=== PATIENT | male | born 1985 | race Caucasian/White ===

== ENCOUNTER 2017-11-27 13:10 | Outpatient (CLI) | payer SELFPAY | END 2017-11-27 14:52 | disposition home or self-care (01) | PROVIDERS: PCP Nurse Practitioner Family; Visit Provider Nurse Practitioner Family | DX: Z02.4 Encounter for examination for driving license (principal) ==

== ENCOUNTER → 2019-07-31 08:59 | Outpatient (CLI) | payer OTHER, SELFPAY ==
--- NOTE | 2019-07-31 09:02 | US_ITS ---
PROCEDURE: US ABDOMEN LIMITED CLINICAL INDICATION: RUQ PAIN Right upper quadrant pain after eating with nausea COMPARISON: No exams were available for comparison FINDINGS: PANCREAS: Unremarkable. No obvious mass or abnormal fluid collection. No ductal dilatation LIVER: No focal liver lesions demonstrated. Homogeneous echogenicity. No intrahepatic biliary ductal dilatation evident. There is appropriate direction of blood flow within a non dilated portal vein. Increased echogenicity of the liver consistent with fatty liver with poor through transmission of sound RIGHT KIDNEY: Unremarkable. Normal size and echogenicity. No hydronephrosis GALLBLADDER: No gallstones, gallbladder wall thickening, pericholecystic fluid, or biliary dilatation. IMPRESSION: Fatty liver. Otherwise negative right upper quadrant ultrasound Dictated by: Alfredito Nunez MD 07/31/2019 18:17 Electronically signed by Alfredito Nunez MD in [place] 07/31/2019 18:17
== END ==
PROVIDERS: PCP Family Medicine; Visit Provider Family Medicine
DX: R10.11 Right upper quadrant pain (principal)
CPT/HCPCS: 76705

== ENCOUNTER → 2019-08-04 10:04 | Outpatient (CLI) | payer OTHER, SELFPAY ==
--- NOTE | 2019-08-04 10:06 | NM_ITS ---
PROCEDURE: NM HEPATOBILIARY W PHARM CLINICAL INDICATION: RUQ PAIN Right upper quadrant pain COMPARISON: US ABDOMEN LIMITED from 07/31/2019 TECHNIQUE: DOSE: 8.73 mCi technetium Choletec. 3.1 mcg of CCK FINDINGS: Homogeneous activity is present within the hepatic parenchyma. Activity is present in the gallbladder by 10 minutes. Activity is present in the small bowel by 15 minutes. The gallbladder ejection fraction is calculated to be 87 percent. CCK-The patient did not report pain or other symptoms during CCK infusion. IMPRESSION: Unremarkable hepatobiliary scan with normal gallbladder ejection fraction Dictated by: Alfredito Nunez MD 08/04/2019 15:42 Electronically signed by Alfredito Nunez MD in [place] 08/04/2019 15:42
--- NOTE | 2019-08-04 10:28 | HMH.ITSHM ---
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 [facility]
== END ==
PROVIDERS: PCP Family Medicine; Visit Provider Family Medicine
DX: R10.11 Right upper quadrant pain (principal)
CPT/HCPCS: 78227; A9537; J2805

== ENCOUNTER 2021-06-18 12:37 | Emergency (ER) | payer OTHER, SELFPAY ==
[2021-06-18 14:15] VITALS: BP 133/95; PULSE 88; RESP 19; TEMP 36.7; O2SAT 98; BMI 44.7
[2021-06-18 14:40] VITALS: BP 133/95; PULSE 88; RESP 19; TEMP 36.7; O2SAT 98
--- NOTE | 2021-06-18 14:55 | HMH.EDUTC ---
[facility] [place] Disposition Clinical Impression: Encounter for laboratory testing for COVID-19 virus Disposition: Home, Self-Care Condition on Discharge: Good Instructions: DI for COVID-19 (Suspected or Confirmed ), Coronavirus Disease 2019, Preventing the Spread of Coronavirus Discharge Instructions Additional Instructions: *Monitor Temp, Over the counter Motrin or Tylenol as directed/as needed Tylenol every 4 hours and Motrin every 6 hours (as long as your family doctor has told you that you can take it) for fever or pain. and straight to ER if unable to lower temp less than 101.0 after medication given *Warm salt water gargles may help to soothe the throat *Throat Lozenges *Warm fluids like tea with honey may help to soothe the throat *Sleep elevated *Humidifier/Vaporizer * Follow up IMMEDIATELY for new or worsening symptoms or no Noticeable improvement over the next 48-72 hours. 911 for difficulty breathing or swallowing You were tested for today for COVID19 your test result should be back in the next 24-48 hours, You was given written instructions for [facility] portal you can see your results there when they come back you may check it often to see if they are done You was given a handout with instructions for Self Quarantine and Self isolation for while you wait on test results and what to do if they are positive If you are positive the Health Dept will be contacting you also Make sure to take your Vitamins Vit. C Vit D and Zinc if you can take them Referrals: Gonzalo Parker MD [Primary Care Provider] - As needed Forms: Work/School Release Medical Decision Making - Emmanuel Inquiry Pt receiving controlled substance: No Emmanuel was queried for this patient: No Vital Signs: 06/18/21 14:15 06/18/21 14:40 Temperature 98.0 F 98.0 F Temperature Source Oral Pulse Rate 88 Pulse Rate [Right Brachial] 88 Respiratory Rate 19 19 Blood Pressure 133/95 H Blood Pressure [Right Arm] 133/95 H Blood Pressure Mean [Right Arm] 107 Blood Pressure Source [Right Arm] Automatic Cuff Blood Pressure Position [Right Arm] Sitting 02 Sat by Pulse Oximetry 98 Oxygen Delivery Method Room Air [facility] [place] HPI - General Stated complaint: covid test Time Seen by Provider: 06/18/21 14:10 Mode of Arrival: Ambulatory Source of Information: Patient Limitations: No Limitations Description of Symptoms (Recalled from Triage Doc. by RN): REQUESTING COVID TEST. C/O FEVER AND COUGH HEENT Symptoms (Recalled from RN notes): No Resp Symptoms (Recalled from RN notes): No Skin Symptoms (Recalled from RN notes): No MS Symptoms (Recalled from RN notes): No Functional Status (Recalled from RN notes): WNL - History of Present Illness Provider Complaint: Patient states that yesterday he had cough and slight fever States that today he is feeling fine but wanted to get tested for COVID before he went back to [employer] to work on Sunday - Related Data Home Medications Medication Instructions Recorded Confirmed No Known Home Medications 11/26/19 11/26/19 Allergies Allergy/AdvReac Type Severity Reaction Status Date / Time No Known Allergies Allergy Verified 11/26/19 13:03 - Worker's Comp Is this a Worker's Comp case?: No [facility] History - Hepatitis A Screen Drug use history?: No High risk sexual behaviors?: No History of sexually transmitted infection?: No Currently employed?: No Childcare worker?: No Do you have indoor plumbing?: Yes Do you have electricity?: Yes Attestation statement:: This patient has been screened for Hepatitis A risk factors. I have reviewed the patient's past medical history: Yes Comment: sleep apnea Laterality Cases: Bilateral: Carpal Tunnel Release Other Surgeries: Yes: No Previous Surgery - Social History Smoking Status: Current every day smoker Tobacco Type: smokeless tobacco Alcohol Intake: current Alcohol Intake Frequency:: holidays/special occasions only Substance Use Type: denies use Occup
== END 2021-06-18 14:44 | disposition home or self-care (01) ==
PROVIDERS: Emergency Provider Nurse Practitioner; PCP Family Medicine
DX: R51.9 Headache, unspecified (principal); R05 Cough; Z20.822 Contact with and (suspected) exposure to COVID-19
CPT/HCPCS: 99202; G0463; U0003

== ENCOUNTER → 2021-08-15 08:50 | Outpatient (CLI) | payer OTHER, SELFPAY ==
--- NOTE | 2021-08-15 09:17 | US_ITS ---
PROCEDURE: US THYROID CLINICAL INDICATION: THYROMEGALY COMPARISON: No exams were available for comparison FINDINGS: The right lobe measures 4.7 x 1.7 x 2.1 cm. The left lobe measures 4.8 x 1.72.1 cm. The isthmus is thickened at 7 mm. There is homogeneous echogenicity of the thyroid gland on both sides. No nodule is in the right or left lobe. There are 2 small nodules in the central and left aspect of the isthmus measuring 9 x 3 mm and 5 x 5 mm. These are hypoechoic well-circumscribed wider than tall without calcification. IMPRESSION: Mildly enlarged thyroid gland. Two small isthmus nodules. These are not well demonstrated. The the 5 mm nodule nodule may be cystic. Suggest 6 month follow-up. Dictated by: Alfredito Nunez MD 08/15/2021 16:43 Alfredito Nunze MD in [place] 08/15/2021 16:43
== END ==
LOC: RAD 08:50
PROVIDERS: PCP Family Medicine; Visit Provider Nurse Practitioner Family
DX: E01.0 Iodine-deficiency related diffuse (endemic) goiter (principal)
CPT/HCPCS: 76536

== ENCOUNTER → 2021-12-01 09:14 | Outpatient (CLI) | payer OTHER, SELFPAY ==
--- NOTE | 2021-12-01 09:22 | XR_ITS ---
FINAL REPORT CLINICAL HISTORY: RT SHOULDER PAIN FINDINGS: RIGHT SHOULDER Two views demonstrate no acute fracture or dislocation. Mild degenerative changes are present. The visualized bony structures are well aligned. No soft tissue abnormality is seen. IMPRESSION: No acute process. Reviewed, Interpreted and Dictated by Sami Oro III, MD Transcribed by Caitlin Reaves Authenticated by Sami Oro III, MD on 12/01/2021 10:10:38 AM [facility]
== END ==
LOC: RAD 09:15
PROVIDERS: PCP Family Medicine; Visit Provider Nurse Practitioner Family
DX: M25.511 Pain in right shoulder (principal)
CPT/HCPCS: 73030

== ENCOUNTER 2022-11-20 09:36 | Emergency (ER) | payer OTHER, SELFPAY ==
[2022-11-20 10:45] VITALS: BP 157/92; PULSE 95; RESP 20; TEMP 37.1; O2SAT 98; BMI 43.4
--- NOTE | 2022-11-20 10:54 | EXP.UTC ---
Discharge Plan Disposition Patient Disposition: Home, Self-Care Condition: Good Prescriptions Prescriptions: New amoxicillin [amoxicillin] 500 mg tablet 500 mg PO TID 10 Days Qty: 30 0RF benzonatate [benzonatate] 100 mg capsule 100 mg PO TIDP PRN (Reason: Cough) Qty: 30 0RF ondansetron 4 mg Tablet,Disintegrating 4 mg PO Q8H PRN (Reason: Nausea) Qty: 12 0RF Referrals Follow up/Referrals: Tera Reynolds MD [Primary Care Provider] - See instructions Activity Restrictions/Add. Instructions Additional Instructions/Restrictions: Drink plenty of fluids. Take tylenol or ibuprofen for pain or fever. Take the medications as directed. Follow up with your regular doctor. GO TO THE ER FOR ANY WORSENING SYMPTOMS Throw your tooth brush away and get a new one. Clinical Impressions Clinical Impression: Strep throat Stand Alone Forms Stand Alone Forms: Work/School Release Instructions Patient Instructions: Strep Throat, DI for Strep Throat Discharge ED Provider: Leon Monroe [facility] General Stated complaint: fever sore throat runny nose Time Seen by Provider: 11/20/22 10:54 History of Present Illness Provider Complaint: He states that for the past 2 days he has had a worsening sore throat. Related Data Previous Rx's Medication Instructions Recorded amoxicillin 500 mg tablet 500 mg PO TID 10 days #30 tabs 11/20/22 benzonatate 100 mg capsule 100 mg PO TIDP PRN Cough #30 caps 11/20/22 ondansetron 4 mg disintegrating 4 mg PO Q8H PRN Nausea #12 tabs 11/20/22 tablet Allergies Allergy/AdvReac Type Severity Reaction Status Date / Time No Known Allergies Allergy Verified 11/20/22 11:[address] [facility] Disclaimer: The information contained in this section may have been updated after the patient was seen, as this information can be updated by other users. Social History Smoking Status: Current every day smoker tobacco type: smokeless tobacco alcohol intake: current substance use type: denies use current occupational status: employed Travel in the last 8 weeks: None household members: family housing: house ROS Obtained: Yes All systems reviewed & no additional complaints except as documented Constitutional Constitutional: Reports chills and Reports fever(s) Eyes Eyes: Denies eye discharge ENT Ears, Nose, Mouth, and Throat: Reports as per HPI Cardiovascular Cardiovascular: Denies chest pain Respiratory Respiratory: Denies chest congestion and Reports cough Gastrointestinal Gastrointestingal: Reports nausea; Denies abdominal pain, constipation, cramping, diarrhea or vomiting Musculoskeletal Musculoskeletal: Denies arthralgias Integumentary/Breasts Skin/Breast: Denies rash Neurologic Neurologic: Denies paresthesias Physical Exam General General appearance: alert and in no apparent distress Head Head exam: atraumatic, normocephalic and normal inspection Eye Eye exam: Present normal appearance, PERRL and EOMI ENT ENT exam: Present mucous membranes moist and normal external ear exam Expanded ENT Exam TM/Canal exam: Bilateral TM: erythema and bulging Nose exam: Absent sinus tenderness Mouth exam: Present normal external inspection; Absent drooling Teeth exam: Present normal inspection Throat exam: Present tonsillar erythema, tonsillomegaly and tonsillar exudate Neck Neck exam: Present normal inspection, full ROM and trachea midline; Absent tenderness, meningismus or lymphadenopathy Chest Chest inspection: Present normal inspection and symmetric chest wall rise; Absent tenderness Respiratory Respiratory exam: Present normal lung sounds bilaterally; Absent respiratory distress, wheezes or stridor Cardiovascular Cardiovascular exam: Present regular rate and normal rhythm; Absent systolic murmur or diastolic murmur Abdominal Exam Abdominal exam: Present soft and normal bowel sounds; Absent distention, tenderness, gu
[2022-11-20 10:59] LABS: UTC Strep Screen (Rapid) Positive (Negative)
[2022-11-20 11:24] VITALS: BP 157/92; PULSE 95; RESP 20; TEMP 37.1; O2SAT 98
== END 2022-11-20 11:23 | disposition home or self-care (01) ==
PROVIDERS: Emergency Provider Nurse Practitioner Family; PCP Family Medicine
DX: J02.0 Streptococcal pharyngitis (principal)
CPT/HCPCS: 87880; 99212; 99213; G0463

== ENCOUNTER 2023-01-19 15:46 | Emergency (ER) | payer OTHER, SELFPAY ==
[2023-01-19 15:50] VITALS: BP 143/87; PULSE 90; RESP 21; TEMP 36.8; O2SAT 100; BMI 46.0
[2023-01-19 16:49] VITALS: BP 143/87; PULSE 90; RESP 21; TEMP 36.8; O2SAT 100
--- NOTE | 2023-01-19 16:56 | EXP.UTC ---
Discharge Plan Disposition Patient Disposition: Home, Self-Care Condition: Good Prescriptions Prescriptions: New cefdinir 300 mg capsule 300 mg PO BID 10 Days Qty: 20 0RF Discontinued amoxicillin [amoxicillin] 500 mg tablet 500 mg PO TID 10 Days Qty: 30 0RF benzonatate [benzonatate] 100 mg capsule 100 mg PO TIDP PRN (Reason: Cough) Qty: 30 0RF ondansetron 4 mg Tablet,Disintegrating 4 mg PO Q8H PRN (Reason: Nausea) Qty: 12 0RF Referrals Follow up/Referrals: Iqra Oneill APRN [Primary Care Provider] - See instructions Clinical Impressions Clinical Impression: Acute suppur right otitis media w/o spontan rupture tympanic membrane Instructions Patient Instructions: DI for Middle Ear Infection-Adult Discharge ED Provider: Swathi Mueller [facility] General Stated complaint: ears Mode of Arrival: Ambulatory Source of Information: Patient Limitations: No Limitations Time Seen by Provider: 01/19/23 16:56 Description of Symptoms (Recalled from Triage Doc. by RN): PATIENT C/O SINUS CONGESTION AND EAR PAIN THAT STARTED YESTERDAY HEENT Symptoms (Recalled from RN notes): Yes Resp Symptoms (Recalled from RN notes): No Skin Symptoms (Recalled from RN notes): No MS Symptoms (Recalled from RN notes): No Functional Status (Recalled from RN notes): WNL History of Present Illness Provider Complaint: Pt states that yesterday he started having some sinus drainage and right ear pain. He relates that he uses CPAP and often will get a sinus infection from its use. Related Data Previous Rx's Medication Instructions Recorded cefdinir 300 mg capsule 300 mg PO BID 10 days #20 caps 01/19/23 Allergies Allergy/AdvReac Type Severity Reaction Status Date / Time No Known Allergies Allergy Verified 11/20/22 11:01 Worker's Comp Is this a Worker's Comp case?: No [facility] Disclaimer: The information contained in this section may have been updated after the patient was seen, as this information can be updated by other users. Social History Smoking Status: Current every day smoker tobacco type: smokeless tobacco alcohol intake: current substance use type: denies use current occupational status: employed Travel in the last 8 weeks: None household members: family housing: house ROS Obtained: Yes All systems reviewed & no additional complaints except as documented Constitutional Constitutional: Reports system reviewed and no additional complaints, except as documented Eyes Eyes: Reports system reviewed and no additional complaints, except as documented ENT Ears, Nose, Mouth, and Throat: Reports otalgia, Reports nasal discharge and Reports sinus pressure Cardiovascular Cardiovascular: Reports system reviewed and no additional complaints, except as documented Respiratory Respiratory: Reports system reviewed and no additional complaints, except as documented Gastrointestinal Gastrointestingal: Reports system reviewed and no additional complaints, except as documented Genitourinary Male Genitourinary: Reports system reviewed and no additional complaints, except as documented Musculoskeletal Musculoskeletal: Reports system reviewed and no additional complaints, except as documented Integumentary/Breasts Skin/Breast: Reports system reviewed and no additional complaints, except as documented Neurologic Neurologic: Reports system reviewed and no additional complaints, except as documented Endocrine Endocrine: Reports system reviewed and no additional complaints, except as documented Hematologic/Lymphatic Henatologic/Lymphatic: Reports system reviewed and no additional complaints, except as documented Allergic/Immunologic Allergic/Immunologic: Reports system reviewed and no additional complaints, except as documented Physical Exam General General appearance: alert and in no apparent distress Head Head exam: atraumatic and normocephalic Eye Eye
== END 2023-01-19 17:11 | disposition home or self-care (01) ==
PROVIDERS: Emergency Provider Nurse Practitioner Family; PCP Nurse Practitioner Family
DX: H66.001 Acute suppurative otitis media without spontaneous rupture of ear drum, right ear (principal); F17.290 Nicotine dependence, other tobacco product, uncomplicated
CPT/HCPCS: 99212; 99214; G0463

== ENCOUNTER 2023-09-09 11:52 | Emergency (ER) | payer BC, SELFPAY ==
[2023-09-09 13:30] VITALS: BP 117/80; PULSE 86; RESP 20; TEMP 37; O2SAT 96; BMI 50.3
--- NOTE | 2023-09-09 13:44 | EXP.UTC ---
Discharge Plan Disposition Patient Disposition: Home, Self-Care Condition: Good Prescriptions Prescriptions: New prednisone [prednisone] 20 mg tablet 20 mg PO BID 5 Days Qty: 10 0RF [id number] [Bromfed DM] 2-30-10 mg/5 mL Syrup 10 ml PO Q4H PRN (Reason: Cough) Qty: 240 0RF cefdinir 300 mg capsule 300 mg PO BID Qty: 20 0RF albuterol sulfate [Proventil HFA] 90 mcg/actuation HFA aerosol inhaler 1 - 2 inh inhalation Q6H PRN (Reason: shortness of breath or wheezing) Qty: 8.5 0RF guaifenesin [Mucinex] 600 mg tablet extended release 12hr 1,200 mg PO BID PRN (Reason: cough/congestion) Qty: 20 0RF No Action cefdinir 300 mg capsule 300 mg PO BID 10 Days Qty: 20 0RF Referrals Follow up/Referrals: Tera Reynolds MD [Primary Care Provider] - See instructions Activity Restrictions/Add. Instructions Additional Instructions/Restrictions: Start antibiotic today. Be sure to complete entire prescription even if feeling better Monitor temp. Tylenol every 4 hours as needed and / or ibuprofen every 6 hours as needed ( As long as your primary care physician has told you that it ok to take both. For fever/aches/pains ER if no less than 101 despite Tylenol or Motrin Humidifier/vaporizer or hot steamy shower Inhaler every 4-6 hours as needed like we discussed. If unsure how to use it, ask pharmacist to demonstrate how. Should help open airways and improve cough, wheezing, and shortness of breath Mucinex during the day for your cough and cough suppressant only at night. Be sure to drink lots of water. *Bromfed may cause drowsiness. Know how it effects you (your child) before driving, caring for small child, or sending your child to school. Not other antihistamines/allergy medications while taking bromfed *Start steroid today. Helps with inflammation therefore, cough and wheezing. Follow directions on the package. Reviewed side effects. Patient reports taking them before. Follow up IMMEDIATELY for new or worsening of symptoms OR no noticeable improvement over the next 48-72 hours. 911 immediately for any life threatening symptoms such as chest pain or difficulty breathing Clinical Impressions Clinical Impression: Bronchitis Sinusitis Qualifiers: Sinusitis location: unspecified location Chronicity: unspecified Qualified Code(s): J32.9 - Chronic sinusitis, unspecified Instructions Patient Instructions: Sinusitis, DI for Sinusitis, Acute Bronchitis Discharge ED Provider: Breanne Walton [facility] General Stated complaint: cough, wheezing in chest Mode of Arrival: Ambulatory Source of Information: Patient Limitations: No Limitations Time Seen by Provider: 09/09/23 13:44 Description of Symptoms (Recalled from Triage Doc. by RN): PATIENT C/O CHEST CONGESTION, COUGH AND WHEEZING X 4 DAYS HEENT Symptoms (Recalled from RN notes): No Resp Symptoms (Recalled from RN notes): Yes Skin Symptoms (Recalled from RN notes): No MS Symptoms (Recalled from RN notes): No Functional Status (Recalled from RN notes): WNL History of Present Illness Provider Complaint: Patient states that he feels like he has bronchitis States that for the last 3-4 days he has been having chest congestion, cough, wheezing on and off and drainage in the back of his throat States that he feels like it is getting worse so he came in to get checked out Related Data Previous Rx's Medication Instructions Recorded cefdinir 300 mg capsule 300 mg PO BID 10 days #20 caps 01/19/23 albuterol sulfate 90 mcg/actuation 1 - 2 inh inhalation Q6H PRN 09/09/23 aerosol inhaler (Proventil HFA) shortness of breath or wheezing #8.5 grams [id number] 10 ml PO Q4H PRN Cough #240 mL 09/09/23 2 mg-30 mg-10 mg/5 mL oral syrup (Bromfed DM) cefdinir 300 mg capsule 300 mg PO BID #20 caps 09/09/23 guaifenesin 600 mg tablet, 1,200 mg PO BID PRN 09/09/23
[2023-09-09 13:55] VITALS: BP 117/80; PULSE 86; RESP 20; TEMP 37; O2SAT 96
== END 2023-09-09 13:57 | disposition home or self-care (01) ==
PROVIDERS: Emergency Provider Nurse Practitioner; PCP Family Medicine
DX: J20.9 Acute bronchitis, unspecified (principal); J01.90 Acute sinusitis, unspecified; R06.2 Wheezing; R05.9 Cough, unspecified; R09.89 Other specified symptoms and signs involving the circulatory and respiratory systems; R09.81 Nasal congestion; R09.82 Postnasal drip; F17.290 Nicotine dependence, other tobacco product, uncomplicated
CPT/HCPCS: 99212; 99214; G0463

== ENCOUNTER 2023-11-18 11:04 | Emergency (ER) | payer BC, SELFPAY ==
[2023-11-18 11:05] VITALS: BP 132/82; PULSE 90; RESP 16; TEMP 36.8; O2SAT 99; BMI 47.5
--- NOTE | 2023-11-18 11:37 | ED_ITS ---
Discharge Plan Disposition Patient Disposition: Home, Self-Care Condition: Good Prescriptions Prescriptions: New amoxicillin-pot clavulanate 875-125 mg tablet 1 tab PO BID Qty: 20 0RF No Action cefdinir 300 mg capsule 300 mg PO BID 10 Days Qty: 20 0RF prednisone [prednisone] 20 mg tablet 20 mg PO BID 5 Days Qty: 10 0RF [id number]-[id number]-[id number] [Bromfed DM] 2-30-10 mg/5 mL Syrup 10 ml PO Q4H PRN (Reason: Cough) Qty: 240 0RF cefdinir 300 mg capsule 300 mg PO BID Qty: 20 0RF albuterol sulfate [Proventil HFA] 90 mcg/actuation HFA aerosol inhaler 1 - 2 inh inhalation Q6H PRN (Reason: shortness of breath or wheezing) Qty: 8.5 0RF guaifenesin [Mucinex] 600 mg tablet extended release 12hr 1,200 mg PO BID PRN (Reason: cough/congestion) Qty: 20 0RF Referrals Follow up/Referrals: Tera Reynolds MD [Primary Care Provider] - See instructions Activity Restrictions/Add. Instructions Additional Instructions/Restrictions: You were evaluated in the emergency department today. Please machine pecan picker the prescription for antibiotics and take the full course as prescribed. Follow-up with your dentist over the next 2 days for reassessment. Return to the emergency department for new or worsening symptoms. Take Tylenol and ibuprofen at home as needed for pain. Clinical Impressions Clinical Impression: Pain, dental Instructions Patient Instructions: DI for Dental Pain Discharge ED Provider: Shira Denise General Adult HPI General Chief complaint: Dental/Oral Stated complaint: had teeth removed swollen and shooting pain Time Seen by Provider: 11/18/23 11:15 Mode of Arrival: Ambulatory Source of Information: Patient Limitations: No Limitations Description of Symptoms (Recalled from ER Triage Doc. by RN): Pt c/o left jaw pain after bitting into a chip lastnight. Pt reports having a tooth on the right side extracted 3 1/2 weeks ago. History of Present Illness HPI narrative: This patient is a 38-year-old male with history of port infection status post dental extractions bilaterally presenting to the emergency department for evaluation with concern for right-sided dental pain. According to the patient, he bit into a chip yesterday at a [employer] restaurant and started having tooth on the right side where he had had a tooth extracted. The tooth was extracted approximate 3.5 weeks ago. He was on amoxicillin afterward, which she has subsequently completed the course of. He notes that now he is having pain and swelling in his right lower jaw. The pain radiates up into his ear. No fevers or systemic symptoms noted. Related Data Previous Rx's Medication Instructions Recorded cefdinir 300 mg capsule 300 mg PO BID 10 days #20 caps 01/19/23 albuterol sulfate 90 mcg/actuation 1 - 2 inh inhalation Q6H PRN 09/09/23 aerosol inhaler (Proventil HFA) shortness of breath or wheezing #8.5 grams mgtuiwbfbkfshyh-ctdazcmnhjdwgld-LA 10 ml PO Q4H PRN Cough #240 mL 09/09/23 2 mg-30 mg-10 mg/5 mL oral syrup (Bromfed DM) cefdinir 300 mg capsule 300 mg PO BID #20 caps 09/09/23 guaifenesin 600 mg tablet, 1,200 mg PO BID PRN 09/09/23 extended release 12 hr (Mucinex) cough/congestion #20 tabs prednisone 20 mg tablet 20 mg PO BID 5 days #10 tabs 09/09/23 amoxicillin 875 mg-potassium 1 tab PO BID #20 tabs 11/18/23 clavulanate 125 mg tablet Allergies Allergy/AdvReac Type Severity Reaction Status Date / Time No Known Allergies Allergy Verified 11/20/22 11:01 [facility] Disclaimer: The information contained in this section may have been updated after the patient was seen, as this information can be updated by other users. Medical History No significant past medical history Social History Smoking Status: Never smoker alcohol intake: current substance use type: denies use current occupational status: employed Travel in the last 8 weeks: None household members: family housing: house ROS Obtained: Yes All systems reviewed & no additional complaints except as documented Physical Exam General General appearance: alert and in no apparent distress Head Head exam: atraumatic and normocephalic Eye Eye exam: Present normal appearance, PERRL and EOMI ENT ENT exam: Present normal oropharynx, mucous membranes moist and normal external ear exam Expanded ENT Exam Teeth numbered Image: 1. Other (bony fragment protruding from gums at site of prior extraction with tenderness and associated edema) Neck Neck exam: Present normal inspection, full ROM and trachea midline; Absent tenderness Chest Chest inspection: Present normal inspection and symmetric chest wall rise; Absent tenderness Respiratory Respiratory exam: Present normal lung sounds bilaterally; Absent respiratory distress, wheezes, stridor or accessory muscle use Cardiovascular Cardiovascular exam: Present regular rate and normal rhythm Abdominal Exam Abdominal exam: Present soft; Absent distention, tenderness or guarding Extremities Exam Extremities exam: Present normal inspection, full ROM and normal capillary refill; Absent tenderness or edema Back Exam Back exam: Present normal inspection and full ROM; Absent tenderness Neurological Exam Neurological exam: Present alert, oriented X3, CN II-XII intact and normal gait; Absent motor sensory deficit Psychiatric Psychiatric exam: Present normal affect and normal mood Skin Skin exam: Present warm and dry Medical Decision Making Medical Records Medical records reviewed: Yes I reviewed the patient's medical records. Emmanuel Inquiry Pt receiving controlled substance: No Vital Signs: 11/18/23 11:05 Temperature 98.2 F Temperature Source Oral Pulse Rate [Right Radial] 90 Respiratory Rate 16 Blood Pressure [Right Arm] 132/82 Blood Pressure Mean [Right Arm] 98 Blood Pressure Source [Right Arm] Automatic Cuff Blood Pressure Position [Right Arm] Sitting 02 Sat by Pulse Oximetry 99 Oxygen Delivery Method Room Air Lab Data Lab results reviewed: Yes I reviewed the patient's lab results. Medical Decision Narrative: In summary, this patient is a 38-year-old male presenting to the Emergency Department for evaluation of right-sided dental pain. Differential diagnoses considered include but are not limited to abscess, foreign body, cellulitis, dental fracture. Ruling out the most morbid conditions drove assessment. On exam, the patient is well-appearing. He has tenderness and swelling of the right lower jaw at the site of a retained bony fragment from prior extraction. The last 1 without significant swelling of his face. No drooling or trismus. No systemic symptoms, and vitals are normal. Given this, do not feel that labs or imaging are indicated. I feel that he is appropriate for discharge with a prescription for Augmentin to treat potential infection and instructions for close follow-up with his dentist for further evaluation and management. He was given strict return precautions and was discharged in stable condition after all questions were answered. Critical Care Critical Care Time Critical Care Time: No
[2023-11-18 11:48] VITALS: BP 132/82; PULSE 90; RESP 16; TEMP 36.8; O2SAT 99
== END 2023-11-18 11:49 | disposition home or self-care (01) ==
PROVIDERS: Emergency Provider Emergency Medicine; PCP Family Medicine
DX: R68.84 Jaw pain (principal); K08.89 Other specified disorders of teeth and supporting structures
CPT/HCPCS: 99283

== ENCOUNTER 2024-12-24 16:12 | Emergency (ER) | payer BC, SELFPAY ==
[2024-12-24 16:33] LABS: Microscopic, Urine URINE MICROSCOPIC (MICROSCOPIC)
--- NOTE | 2024-12-24 16:33 | ED_ITS ---
<Statement entered by Shira Denise DO - 12/24/24 22:44> I was consulted by the NARCISA, and we discussed the complexity of the problems being addressed. I approved the treatment and management plan for this patient's care in the emergency department, thus performing a substantive portion of the medical decision making. Shira Denise DO Discharge Plan Disposition Patient Disposition: Home, Self-Care Condition: Good Chief Complaint: Altered Mental Status Prescriptions Prescriptions: No Action Mounjaro 7.5 mg/0.5 mL pen injector 7.5 mg SQ WEEKLY Patient Comments: INJECT 1 SYRINGE SUBCUTANEOUSLY ONCE A WEEK Referrals Follow up/Referrals: Tera Reynolds MD [Primary Care Provider] - See instructions Activity Restrictions/Add. Instructions Additional Instructions/Restrictions: Return to the emergency department with any worsening signs or symptoms, follow- up with family doctor. Continue take all medication as prescribed. Clinical Impressions Clinical Impression: Intermittent confusion, H/O urinary frequency Instructions Patient Instructions: DI for Altered Mental Status Print Language Print Language: Albanian Discharge ED Provider: Shira Denise General Adult HPI <AUDRA Brown - Last Filed: 12/24/24 18:41> General Chief complaint: Altered Mental Status Stated complaint: frequent urination, confused Time Seen by Provider: 12/24/24 16:31 Mode of Arrival: Ambulatory Source of Information: Patient Limitations: No Limitations History of Present Illness HPI narrative: 39-year-old male presents to the emergency department for a chief complaint of confusion , patient states this started this morning. 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 Denies any fever chills chest pain shortness of breath nausea vomiting constipation abdominal pain, melena, no hematochezia, no hematemesis, admit to fatigue, he admits to recent life stressors, states he got a good nights rest last night , dates he has been eating and drinking appropriately, patient has no other real relevant past medical history, takes GLP-1 agonist at home as needed for weight loss. Patient is a non-smoker, does use smokeless tobacco, denies any other alcohol or drug use, initial triage vitals are notable for tachycardia otherwise grossly unremarkable. Patient on my assessment at the bedside is GCS of 15, moves extremities to command, alert oriented to person place and time. NIH of 0. Onset (ago): hour(s) Related Data Home Medications ?Medication ?Instructions ?Recorded ?Confirmed tirzepatide 7.5 mg/0.5 mL 7.5 mg SQ WEEKLY 12/24/24 12/24/24 subcutaneous pen injector (Mounjaro) Allergies Allergy/AdvReac Type Severity Reaction Status Date / Time No Known Allergies Allergy Verified 12/24/24 16:52 PFS <AUDRA Brown - Last Filed: 12/24/24 18:41> PFS Disclaimer: The information contained in this section may have been updated after the patient was seen, as this information can be updated by other users. Medical History No significant past medical history Family History (Updated 12/24/24 @ 16:51 by Alice Phelan, RN) Other No significant family history Social History Smoking Status: Unknown if ever smoked alcohol intake: current alcohol intake frequency: holidays/special occasions only substance use type: denies use current occupational status: employed Travel in the last 8 weeks: None household members: family housing: house Have you lived/traveled outside [place] in past 30 days?: No Contact w/someone who lives/traveled outside US past 30 days?: No Exposure to someone with infectious disease in past 14 days?: No Do you have a fever (greater than 100.4 F or 38 C)?: No Have you tested positive for COVID-19: No Exposed to someone with COVID-19 in past 14 days?: No Do you have a sore throat?: No Do you have a cough?: No Do you have any weakness?: No Do you have any diarrhea?: No Are you experiencing any unusual bleeding?: No Do you have any muscle aches/pain?: No Do you have any abdominal pain?: No Are you experiencing loss of taste or smell?: No Other Medical History Have you received the Flu Vaccine for this season: No Have you received the Pneumonia Vaccine: No <AUDRA Brown - Last Filed: 12/24/24 18:41> ROS Obtained: Yes All systems reviewed & no additional complaints except as documented Physical Exam <AUDRA Brown - Last Filed: 12/24/24 18:41> General General appearance: alert, in no apparent distress and anxious Head Head exam: atraumatic and normocephalic Eye Eye exam: Present PERRL and EOMI ENT ENT exam: Present mucous membranes moist Neck Neck exam: Present normal inspection Chest Chest inspection: Present normal inspection and symmetric chest wall rise Respiratory Respiratory exam: Present normal lung sounds bilaterally; Absent respiratory distress, wheezes or stridor Cardiovascular Cardiovascular exam: Present regular rate and tachycardia Abdominal Exam Abdominal exam: Present soft and normal bowel sounds; Absent tenderness, guarding, rebound or rigidity Extremities Exam Extremities exam: Present normal inspection Neurological Exam Neurological exam: Present alert, oriented X3 and other (Patient is GCS of 15, 5 out of 5 strength in bilateral lower and upper extremities, moves extremities to command, follows commands, oriented to person place and time.) Psychiatric Psychiatric exam: Present normal affect Skin Skin exam: Present warm and dry Medical Decision Making <AUDRA Brown - Last Filed: 12/24/24 18:41> Medical Records Medical records reviewed: Yes I reviewed the patient's medical records. Screening: Per USPSTF and CDC recommendations, given the prevalence of disease in our region, it is our hospital?s policy to screen for HIV and viral Hepatitis for all patients aged 18 and over and those with ongoing risk factors. Emmanuel Inquiry Pt receiving controlled substance: No Emmanuel was queried for this patient: No Vital Signs: 12/24/24 16:35 12/24/24 17:05 12/24/24 17:39 Temperature 98.1 F Temperature Source Oral Pulse Rate 96 H 91 H Pulse Rate [Right] 104 H Respiratory Rate 18 Blood Pressure 116/67 Blood Pressure [Right Arm] 157/98 H Blood Pressure Mean 83 Blood Pressure Mean [Right Arm] 117 Blood Pressure Source [Right Arm] Automatic Cuff Blood Pressure Position [Right Arm] Sitting 02 Sat by Pulse Oximetry 97 94 L 97 Oxygen Delivery Method Room Air 12/24/24 18:01 Temperature Temperature Source Pulse Rate 94 H Pulse Rate [Right] Respiratory Rate Blood Pressure 119/65 Blood Pressure [Right Arm] Blood Pressure Mean 74 Blood Pressure Mean [Right Arm] Blood Pressure Source [Right Arm] Blood Pressure Position [Right Arm] 02 Sat by Pulse Oximetry 96 Oxygen Delivery Method Lab Data Lab Results 12/24/24 16:20: WBC 10.8, RBC 5.44, Hgb 16.0, Hct 46.8, MCV 86.0, MCH 29.4, MCHC 34.2, RDW 13.8, Plt Count 288, MPV 8.9, Neut % (Auto) 64.1, Lymph % (Auto) 24.3, [place] % (Auto) 8.5, Eos % (Auto) 2.1, Baso % (Auto) 0.6, Neut # (Auto) 6.9, Lymph # (Auto) 2.6, [place] # (Auto) 0.9, Eos # (Auto) 0.2, Baso # (Auto) 0.1, Sodium 137, Potassium 4.0, Chloride 99, Carbon Dioxide 31 H, Anion Gap 11.0, BUN 10, Creatinine 0.90, Estimated Creat Clear 212, Estimated GFR 94, Est GFR ( Amer) 114, Glucose 101 H, Calcium 9.7, Magnesium 1.8, Total Bilirubin 0.5, AST 37, ALT 39, Alkaline Phosphatase 63, Troponin I < 0.01, NT-Pro-B Natriuret Pep < 20.0, Total Protein 8.1, Albumin 4.8, Globulin 3.3 H, Albumin/Globulin Ratio 1.5, Lipase 287, Urine Color Yellow, Urine Appearance Clear, Urine pH 7.0, Ur Specific [place] 1.020, Urine Protein Negative, Urine Glucose (UA) Negative, Urine Ketones Negative, Urine Blood Negative, Urine Nitrate Negative, Urine Bilirubin Negative, Urine Urobilinogen 0.2, Ur Leukocyte Esterase Negative, Urine RBC Occasional, Urine WBC Occasional, Ur Squamous Epith Cells Occasional, Urine Bacteria 1+, Urine Opiates Screen Negative, Urine Methadone Screen Negative, Ur Barbituates Screen Negative, Ur Phencyclidine Scrn Negative, Ur Amphetamines Screen Negative, U Benzodiazepines Scrn Negative, Urine Cocaine Screen Negative, U Marijuana (THC) Screen Negative 12/24/24 17:11: SARS-CoV-2 (PCR) Not detected, Influenza A Untype (PCR) Not detected, Influenza Type B (PCR) Not detected 12/24/24 16:20 12/24/24 16:20 Orders (Tests/Meds): ORDERS Category Date Time Status CT head/brain wo con Stat Cat Scan 12/24/24 16:43 Completed XR chest portable Stat Exams 12/24/24 16:43 Completed Complete Blood Count Auto Diff Stat Lab 12/24/24 16:20 Completed Comprehensive Metabolic Panel Stat Lab 12/24/24 16:20 Completed Drug Screen,Urine Stat Lab 12/24/24 16:20 Completed Lipase Stat Lab 12/24/24 16:20 Completed Magnesium Stat Lab 12/24/24 16:20 Completed NT Pro Brain Natriuretic Pep. Stat Lab 12/24/24 16:20 Completed Rapid PCR Covid and Flu A/B Stat Lab 12/24/24 17:11 Completed Troponin I Q3H Lab 12/24/24 19:45 Ordered Troponin I Q3H Lab 12/24/24 22:45 Ordered Troponin I Stat Lab 12/24/24 16:20 Completed UA [Urinalysis and Microscopic] Stat Lab 12/24/24 16:20 Completed Medical Decision Narrative: 39-year-old male presents to the emergency department with altered mental status and frequent urination, differential diagnose include but not limited to, cardiac arrhythmia, electrolyte disturbance, normal pressure hydrocephalus, acute UTI, uremic encephalopathy, toxic cephalopathy, metabolic encephalopathy, encephalopathy, intracranial mass, intracranial hemorrhage. Discussed patient case with leif Denise Obtain basic laboratory studies, lipase level, magnesium level proBNP, urinalysis and UDS, rapid PCR for COVID and flu, troponin, EKG, CT head without contrast, chest x-ray Urinalysis is grossly unremarkable, negative hematuria, negative ketonuria, negative nitrites, negative leukocyte esterase. CBC grossly unremarkable CMP is notable for minimal carbon dioxide elevation level at 31, grossly unremarkable CMP. Lipase is within normal limits. Urinalysis is negative for leukocyte esterase, occasional RBCs, occasional WBCs, 1+ bacteria, negative nitrites Troponin within normal limits proBNP within normal limits I reviewed the patient's CT head without contrast along the corresponding radiologic report, no evidence for acute transcortical infarct, acute intracranial hemorrhage or mass effect. I reviewed the patient's chest x-ray along the corresponding radiologic report clear lungs. Reviewed the patient's EKG along with the attending physician at 1709, sinus rhythm with 96 bpm, DE interval within normal limits, QT interval within normals there is no STEMI. UDS is negative Patient is negative for COVID-19, influenza A and B. Reexamination of the patient at 6:30 PM, patient is at his neurological baseline cord to his at the bedside, patient is again GCS of 15, has no acute complaints, NIH of 0, he is cleared to be discharged home to self-care, I discussed all results with the patient and family at the bedside. Patient family agree with current treatment plan/discharge plan. Patient will return to the emergency room with any worsening signs or symptoms. Strict ED return precaution given. Follow-up with family physician. <Shira Valenzuela Howie, DO - Last Filed: 12/24/24 17:15> Vital Signs: 12/24/24 16:35 12/24/24 17:05 12/24/24 17:39 Temperature 98.1 F Temperature Source Oral Pulse Rate 96 H 91 H Pulse Rate [Right] 104 H Respiratory Rate 18 Blood Pressure 116/67 Blood Pressure [Right Arm] 157/98 H Blood Pressure Mean 83 Blood Pressure Mean [Right Arm] 117 Blood Pressure Source [Right Arm] Automatic Cuff Blood Pressure Position [Right Arm] Sitting 02 Sat by Pulse Oximetry 97 94 L 97 Oxygen Delivery Method Room Air 12/24/24 18:01 Temperature Temperature Source Pulse Rate 94 H Pulse Rate [Right] Respiratory Rate Blood Pressure 119/65 Blood Pressure [Right Arm] Blood Pressure Mean 74 Blood Pressure Mean [Right Arm] Blood Pressure Source [Right Arm] Blood Pressure Position [Right Arm] 02 Sat by Pulse Oximetry 96 Oxygen Delivery Method Lab Data Lab Results 12/24/24 16:20: WBC 10.8, RBC 5.44, Hgb 16.0, Hct 46.8, MCV 86.0, MCH 29.4, MCHC 34.2, RDW 13.8, Plt Count 288, MPV 8.9, Neut % (Auto) 64.1, Lymph % (Auto) 24.3, [place] % (Auto) 8.5, Eos % (Auto) 2.1, Baso % (Auto) 0.6, Neut # (Auto) 6.9, Lymph # (Auto) 2.6, [place] # (Auto) 0.9, Eos # (Auto) 0.2, Baso # (Auto) 0.1, Sodium 137, Potassium 4.0, Chloride 99, Carbon Dioxide 31 H, Anion Gap 11.0, BUN 10, Creatinine 0.90, Estimated Creat Clear 212, Estimated GFR 94, Est GFR ( Amer) 114, Glucose 101 H, Calcium 9.7, Magnesium 1.8, Total Bilirubin 0.5, AST 37, ALT 39, Alkaline Phosphatase 63, Troponin I < 0.01, NT-Pro-B Natriuret Pep < 20.0, Total Protein 8.1, Albumin 4.8, Globulin 3.3 H, Albumin/Globulin Ratio 1.5, Lipase 287, Urine Color Yellow, Urine Appearance Clear, Urine pH 7.0, Ur Specific [place] 1.020, Urine Protein Negative, Urine Glucose (UA) Negative, Urine Ketones Negative, Urine Blood Negative, Urine Nitrate Negative, Urine Bilirubin Negative, Urine Urobilinogen 0.2, Ur Leukocyte Esterase Negative, Urine RBC Occasional, Urine WBC Occasional, Ur Squamous Epith Cells Occasional, Urine Bacteria 1+, Urine Opiates Screen Negative, Urine Methadone Screen Negative, Ur Barbituates Screen Negative, Ur Phencyclidine Scrn Negative, Ur Amphetamines Screen Negative, U Benzodiazepines Scrn Negative, Urine Cocaine Screen Negative, U Marijuana (THC) Screen Negative 12/24/24 17:11: SARS-CoV-2 (PCR) Not detected, Influenza A Untype (PCR) Not detected, Influenza Type B (PCR) Not detected Orders (Tests/Meds): ORDERS Category Date Time Status CT head/brain wo con Stat Cat Scan 12/24/24 16:43 Completed XR chest portable Stat Exams 12/24/24 16:43 Completed Complete Blood Count Auto Diff Stat Lab 12/24/24 16:20 Completed Comprehensive Metabolic Panel Stat Lab 12/24/24 16:20 Completed Drug Screen,Urine Stat Lab 12/24/24 16:20 Completed Lipase Stat Lab 12/24/24 16:20 Completed Magnesium Stat Lab 12/24/24 16:20 Completed NT Pro Brain Natriuretic Pep. Stat Lab 12/24/24 16:20 Completed Rapid PCR Covid and Flu A/B Stat Lab 12/24/24 17:11 Completed Troponin I Q3H Lab 12/24/24 19:45 Ordered Troponin I Q3H Lab 12/24/24 22:45 Ordered Troponin I Stat Lab 12/24/24 16:20 Completed UA [Urinalysis and Microscopic] Stat Lab 12/24/24 16:20 Completed ECG Data Tracing #1: I reviewed this ECG and interpreted as documented below: Normal sinus rhythm with a ventricular rate of 96 bpm. Interventricular conduction delay. No acute ST changes concerning for STEMI. Normal QTc ECG initial impression date: 03/12/25 ECG initial impression time: 17:09 Critical Care <AUDRA Brown - Last Filed: 12/24/24 18:41> Critical Care Time Critical Care Time: No
[2024-12-24 16:35] VITALS: BP 157/98; PULSE 104; RESP 18; TEMP 36.7; O2SAT 97; BMI 40.6
[2024-12-24 16:40] LABS: Appearance,Urine Clear (Clear); Color,Urine Yellow (Yellow); Glucose,Urine (UA) Negative (Negative); Ketones,Urine Negative (Negative); Protein,Urine Negative (Negative)
[2024-12-24 16:41] LABS: Bilirubin,Urine Negative (Negative); Blood, Urine Negative (Negative); Leukocyte Esterase,Urine Negative (Negative); Nitrate,Urine Negative (Negative); Urobilinogen,Urine 0.2 EU/dl (0.2)
--- NOTE | 2024-12-24 16:43 | CT_ITS ---
PROCEDURE INFORMATION: Exam: CT Head Without Contrast Exam date and time: 12/24/2024 5:01 PM Age: 39 years old Clinical indication: Altered mental status/memory loss; Confusion or disorientation TECHNIQUE: Imaging protocol: Computed tomography of the head without contrast. Radiation optimization: All CT scans at this facility use at least one of these dose optimization techniques: automated exposure control; mA and/or kV adjustment per patient size (includes targeted exams where dose is matched to clinical indication); or iterative reconstruction. COMPARISON: US THYROID 08/15/2021 9:23 AM FINDINGS: Brain: No evidence for acute transcortical infarct. No mass effect or midline shift. No extra-axial collection. No acute intracranial hemorrhage. Basal cisterns are patent. Cerebral ventricles: No ventriculomegaly. Paranasal sinuses: Visualized sinuses are unremarkable. No fluid levels. Mastoid air cells: Visualized mastoid air cells are well aerated. Bones: Unremarkable. No acute fracture. Soft tissues: Unremarkable. IMPRESSION: No evidence for acute transcortical infarct, acute intracranial hemorrhage, or mass effect.
--- NOTE | 2024-12-24 16:43 | XR_ITS ---
PROCEDURE INFORMATION: Exam: XR Chest Exam date and time: 12/24/2024 4:56 PM Age: 39 years old Clinical indication: Chest wall pain; Additional info: SOA TECHNIQUE: Imaging protocol: Radiologic exam of the chest. Views: 1 view. COMPARISON: [facility] CT angio chest 01/19/2018 7:39 PM FINDINGS: Lungs: Clear lungs. Pleural spaces: No pneumothorax. No sizable pleural effusion. Heart/Mediastinum: No cardiomegaly. Bones/joints: Unremarkable. IMPRESSION: Clear lungs.
[2024-12-24 16:50] LABS: Basophils # 0.1 K/mm3 (0-0.2); Basophils % 0.6 % (0.1-2.0); Eosinophils # 0.2 K/mm3 (0.0-0.4); Eosinophils % 2.1 % (0.1-12.0); Hematocrit 46.8 % (42.0-52.0); Lymphocytes # 2.6 K/mm3 (0.7-4.5); Lymphocytes % 24.3 % (10-50); Mean Corpuscular HGB Conc 34.2 g/dL (31.8-35.4); Mean Corpuscular Hemoglobin 29.4 pg (27.0-31.2); Mean Platelet Volume 8.9 fl (7.4-10.4); Monocytes # 0.9 K/mm3 (0.1-1.0); Monocytes % 8.5 % (1.7-9.3); Neutrophils # 6.9 K/mm3 (1.8-7.8); Neutrophils % 64.1 % (37.0-80.0); Platelet Count 288 K/mm3 (142-424); Red Blood Count 5.44 M/mm3 (4.60-6.20); Red Cell Distribution Width 13.8 % (11.5-17.5); White Blood Count 10.8 K/mm3 (4.8-10.8)
--- NOTE | 2024-12-24 16:55 | PC.NURSE ---
Pt to radiology
[2024-12-24 16:56] LABS: Albumin Level 4.8 g/dl (3.5-5.0); Chloride 99 mmol/L (98-107); Sodium 137 mmol/L (136-145)
[2024-12-24 16:58] LABS: Alanine Aminotransferase 39 U/L (12-78); Aspartate Amino Transferase 37 U/L (17-59); Blood Urea Nitrogen 10 mg/dl (9-20); Creatinine Clearance Estimated 212 mL/min (50-200); Estimated Glomerular Filt Rate 94 ml/min (>60); GFR (African American) 114 ML/MIN (>60)
[2024-12-24 16:59] LABS: Albumin/Globulin Ratio 1.5 (1.1-1.8); Alkaline Phosphatase 63 U/L (38-126); Bilirubin,Total 0.5 mg/dl (0.2-1.3); Calcium 9.7 mg/dl (8.4-10.2); Carbon Dioxide 31 mmol/L (22.0-30.0); Globulin 3.3 g/dL (1.3-3.2); Glucose 101 mg/dl (74-100); Lipase 287 U/L (23-300); Magnesium 1.8 mg/dl (1.6-2.3); Total Protein,Serum 8.1 g/dl (6.3-8.2)
[2024-12-24 17:05] VITALS: PULSE 96; O2SAT 94
[2024-12-24 17:08] LABS: Bacteria,Urine 1+ /lpf; NT Pro Brain Natriuretic Pep. < 20.0 pg/mL (0-125); RBC,Urine Occasional #/hpf (0-3); Squamous Epithelial Cell,Urine Occasional #/hpf (0-5); WBC,Urine Occasional #/hpf (0-3)
--- NOTE | 2024-12-24 17:08 | ECG_ITS ---
APPROVED REPORT Exam: Resting ECG HR:96 bpm ECG Measurements Heart Rate 96 AXES WV 155 P 62 QRSd 114 QRS 47 QT 347 T 64 QTc 400 Conclusion SINUS RHYTHM MODERATE INTRAVENTRICULAR CONDUCTION DELAY [110+ ms QRS DURATION] Electronically signed by : KARIME WYATT, 12/24/2024 23:13:00
[2024-12-24 17:10] LABS: Troponin I < 0.01 ng/ml (0.00-0.034)
[2024-12-24 17:16] LABS: Coronavirus 19, PCR Not Detected (NotDetected); Influenza A, PCR Not Detected (NotDetected); Influenza B, PCR Not Detected (NotDetected)
[2024-12-24 17:39] VITALS: BP 116/67; PULSE 91; O2SAT 97
[2024-12-24 18:00] LABS: Barbiturates Screen,Urine Negative ng/ml (<200); Benzodiazepines Screen,Urine Negative ng/ml (<200)
[2024-12-24 18:01] VITALS: BP 119/65; PULSE 94; O2SAT 96
[2024-12-24 18:01] LABS: Amphetamine/Metha Screen,Urine Negative ng/ml (<1000)
[2024-12-24 18:02] LABS: Cannabinoid Screen,Urine Negative ng/ml (<50); Methadone Screen,Urine Negative ng/ml (<300)
[2024-12-24 18:03] LABS: Cocaine Screen,Urine Negative ng/ml (<300)
[2024-12-24 18:04] LABS: Opiate Screen,Urine Negative ng/ml (<300); Phencyclidine Screen,Urine Negative ng/ml (<25)
[2024-12-24 18:50] VITALS: BP 140/74; PULSE 78; RESP 16; TEMP 36.6; O2SAT 99
== END 2024-12-24 18:52 | disposition home or self-care (01) ==
PROVIDERS: Physician Assistant; Emergency Provider Emergency Medicine; PCP Family Medicine
DX: R41.0 Disorientation, unspecified (principal); R51.9 Headache, unspecified; R35.0 Frequency of micturition; F17.290 Nicotine dependence, other tobacco product, uncomplicated
CPT/HCPCS: 70450; 71045; 80053; 80307; 81001; 83690; 83735; 83880; 84484; 85025; 87636; 93005; 99284

== ENCOUNTER 2025-07-10 10:29 | Outpatient (CLI) | payer BC, SELFPAY ==
--- NOTE | 2025-07-10 10:33 | XR_ITS ---
FINAL REPORT CLINICAL HISTORY: RIGHT SHOULDER PAIN FINDINGS: 2 views of the right shoulder were obtained. There is no prior exam for comparison. There is no fracture or dislocation. Mild AC joint degenerative disease is noted. Soft tissues are unremarkable. IMPRESSION: Mild degenerative disease without acute osseous abnormality of the right shoulder. Reviewed, Interpreted and Dictated by Suma Fitzpatrick MD Transcribed by Yara Oscar Authenticated and [facility]
== END 2025-07-10 23:59 | disposition home or self-care (01) ==
LOC: RAD 10:30
PROVIDERS: PCP Nurse Practitioner; Visit Provider Nurse Practitioner
DX: M19.011 Primary osteoarthritis, right shoulder (principal)
CPT/HCPCS: 73030

== ENCOUNTER 2025-08-13 08:00 | Outpatient (RCR) | payer BC, SELFPAY ==
--- NOTE | 2025-07-16 10:30 | HMH.OTOPEV ---
OT Evaluation Rehab OT Outpatient Eval Start: 07/16/25 09:49 Freq: Status: Active Protocol: Document 07/16/25 09:53 WISAM (Rec: 07/16/25 10:30 WISAM [id number]) E-signed By Domi Vega, OT Outpatient Therapy Subjective History Subjective History Pt is a 39 year old male who presents to initial OT OP evaluation due to R shoulder pain. Pt reports onset has been aprox 1 year ago. Pt reports they have had an X- ray and had no findings on report. Pt reports they have not yet had an MRI. Pt reports Dr reports possible RTC tear. Pt reports they are R hand dominant. Pt reports they have a hx of carpal tunnel in B hands and had surgery in 2013. 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 Pt presents with limited ROM during evaluation. Pt presents with avg of 106 lbs in R hand. Pt presents with palpation tenderness more towards posterior RTC, but also anterior. Pt reports those places feel as if a nail is being driven . Due to presence of limitations during evaluation, pt would benefit from skilled OP OT services and interventions to address functional limitations in occupational performance to improve optimal occupational performance. ST. Pt will increase R shoulder flexion to 130 degrees in order to complete daily overhead tasks independently ~50% of the time. 2. Pt will increase R shoulder abduction to 145 degrees to complete upper body dressing independently ~50% of the time. 3. Pt will increase R shoulder ER/IR to 40 degrees (ER) and 35 degrees (IR) in order to complete lower body dressing (putting on and taking off belt) independently ~50% of the time. 4. Pt will increase strength to 3+/5 throughout left shoulder in order to complete heavier household tasks ( laundry, mopping, vacuuming) independently ~50% of the time. 5. Pt will verbalize decreased pain levels at worst in R shoulder to a 5/10 in order to complete daily ADLs independently ~50% of the time. 6. Pt will demonstrate improved endurance by completing R shoulder exercises for ~20 minutes prior to rest break in order to increase his tolerance for daily work activities. 7. Pt will demonstrate independence with HEP of AAROM exercises to increase overall functional use of Right shoulder in daily activities ~75% of the time. 8. Pt will improve QuickDash score of Activities score to 28 or below and Work score to 8 or below in order to demo improved work tolerance and completion of tasks. LT. Pt will increase R shoulder flexion to 150 degrees in order to complete daily overhead tasks independently ~50% of the time. 2. Pt will increase R shoulder abduction to 160 degrees to complete upper body dressing independently ~50% of the time. 3. Pt will increase R shoulder ER/IR to 55 degrees (ER) and 45 degrees (IR) in order to complete lower body dressing (putting on and taking off belt) independently ~50% of the time. 4. Pt will increase strength to 4-/5 throughout left shoulder in order to complete heavier household tasks ( laundry, mopping, vacuuming) independently ~50% of the time. 5. Pt will verbalize decreased pain levels at worst in R shoulder to a 3/10 in order to complete daily ADLs independently ~50% of the time. 6. Pt will demonstrate improved endurance by completing R shoulder exercises for ~30 minutes prior to rest break in order to increase his tolerance for daily work activities. 7. Pt will demonstrate independence with HEP of advanced strengthening exercises to increase overall functional use of Right shoulder in daily activities ~ 75% of the time. 8. Pt will improve QuickDash score of Activities score to 20 or below and Work score to 6 or below in order to demo improved work tolerance and completion of tasks. New diagnosis of No cancer in past 12 months? Chief Complaint Pain,Stiff,Catches/Locks,Weakness,Decreased Coordination Symptom Type Ache,Throb,Sharp,Stabbing,Shooting Symptoms Relieved By Nothing Symptoms Aggravated Physical Activity,Lifting By Prior Functional None Limitations Current Functional Reaching,Lifting,Housework,Dressing,Driving,Sleeping, Limitations Recreation Activity Symptom Description Activity Dependent Level of pain today 2 (0-10) Pain scale - at its 1 best (0-10) Pain scale - at its 6 worst (0-10) Shoulder/Elbow Eval Shoulder Objective Measurements Palpation Tenderness tenderness shoulder right exam standard Shoulder Palpation Tenderness Findings Shoulder Palpation Tenderness at Anterior and Posterior RTC Overall Comment Shoulder ROM Right Shoulder ROM Muscle Tone,Pain Limitations Shoulder Abduction 130 Active Range of Motion (degrees) Shoulder Flexion 120 Active Range of Motion (degrees) Query Text: Shoulder External 40 Rotation Active Range of Motion ( degrees) Shoulder Internal 20 Rotation Active Range of Motion ( degrees) pain with active ROM right shoulder exam standard full ROM shoulder right exam standard Shoulder MMT Shoulder Abduction 3- Fair- Strength Grade Shoulder Flexion 3- Fair- Strength Grade Shoulder External 3- Fair- Rotation Strength Grade Shoulder Internal 3- Fair- Rotation Strength Grade Shoulder Strength Sitting Patient Testing Position Elbow Objective Measurements Wrist/Hand Eval 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 1. Open a tight or Moderate difficulty new jar. 2. 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 g., wash figueroa, floors). 3. Carry a shopping Moderate difficulty bag or briefcase. 4. Wash your back. Moderate difficulty 5. Use a knife to Mild difficulty cut food. 6. Recreational Severe difficulty activities in which you take some force or impact through your arm, shoulder, or hand (e.g., golf, hammering, tennis, etc.). 7. During the past Quite a bit week, to what extent has your arm, shoulder or hand problem interfered with your normal social activities with family, friends , neighbors or groups? 8. During the past Moderately limited week, were you limited in your work or other regular daily activites as a result of your arm, shoulder or hand problem? 9. Arm, shoulder or Severe hand pain. 10. Tingling (pins Severe and needles) in your arm, shoulder or hand. 11. During the past Moderate difficulty week, how much difficulty have you had sleeping because of the pain in your arm, shoulder or hand? Quick DASH 36 Work Module (optional) The following questions ask about the impact of your arm, shoulder or hand problem on your ability to work (including homemaking if that is your main work role). Please indicate what armament mechanic your job/work is: Do you work? Yes 1. Using your usual Moderate difficulty technique for your work? 2. Doing your usual Moderate difficulty work because of arm, shoulder or hand pain? 3. Doing your work Moderate difficulty as well as you would like? 4. Spending your Moderate difficulty usual amount of time doing your work? Quick Dash Work 12 Module Score OT Patient Goals OT Patient Goals OT Short Term 1. Pt will increase R shoulder flexion to 130 degrees Patient Goals in order to complete daily overhead tasks independently ~50% of the time. 2. Pt will increase R shoulder abduction to 145 degrees to complete upper body dressing independently ~50% of the time. 3. Pt will increase R shoulder ER/IR to 40 degrees (ER) and 35 degrees (IR) in order to complete lower body dressing (putting on and taking off belt) independently ~50% of the time. 4. Pt will increase strength to 3+/5 throughout left shoulder in order to complete heavier household tasks ( laundry, mopping, vacuuming) independently ~50% of the time. 5. Pt will verbalize decreased pain levels at worst in R shoulder to a 5/10 in order to complete daily ADLs independently ~50% of the time. 6. Pt will demonstrate improved endurance by completing R shoulder exercises for ~20 minutes prior to rest break in order to increase his tolerance for daily work activities. 7. Pt will demonstrate independence with HEP of AAROM exercises to increase overall functional use of Right shoulder in daily activities ~75% of the time. 8. Pt will improve QuickDash score of Activities score to 28 or below and Work score to 8 or below in order to demo improved work tolerance and completion of tasks. 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 Pt will increase R shoulder flexion to 150 degrees Goals in order to complete daily overhead tasks independently ~50% of the time. 2. Pt will increase R shoulder abduction to 160 degrees to complete upper body dressing independently ~50% of the time. 3. Pt will increase R shoulder ER/IR to 55 degrees (ER) and 45 degrees (IR) in order to complete lower body dressing (putting on and taking off belt) independently ~50% of the time. 4. Pt will increase strength to 4-/5 throughout left shoulder in order to complete heavier household tasks ( laundry, mopping, vacuuming) independently ~50% of the time. 5. Pt will verbalize decreased pain levels at worst in R shoulder to a 3/10 in order to complete daily ADLs independently ~50% of the time. 6. Pt will demonstrate improved endurance by completing R shoulder exercises for ~30 minutes prior to rest break in order to increase his tolerance for daily work activities. 7. Pt will demonstrate independence with HEP of advanced strengthening exercises to increase overall functional use of Right shoulder in daily activities ~ 75% of the time. 8. Pt will improve QuickDash score of Activities score to 20 or below and Work score to 6 or below in order to demo improved work tolerance and completion of tasks. OT Outpatient Assessment Impairments Problems/Impairments Palpation Tenderness,Impaired Range of Motion,Impaired Strength,Impaired Endurance,Impaired Lifting,Impaired Dressing,Impaired Shower/Bathing,Impaired Household Care,Impaired Recreational Activities,Impaired Work Activities,Subjective C/O Pain,Impaired Self Care/Self Management Prognosis Rehab Potential Good Clinical Impression Consistent with Yes Diagnosis Outpatient Therapy Plan of Care Treatment Plan May Include Therapeutic Exercise Yes Including Home Exercise Program Manual Therapy Yes Techniques Neuromuscular Re- Yes education Therapeutic Yes Activities to Return to Previous Functional/Work Level ADL/Self Care Yes Education Thermal Modalities Yes Electrical Yes Stimulation Ultrasound/ Yes Phonophoresis Iontophoresis Yes Parrafin Yes Orthotics/Bracing/ Yes Splinting Group Therapy for Yes Medicare Eval/Re-Eval Yes Frequency Times per week 2 Duration Number of Weeks 6 Addendums This patient is a No candidate for social or vocational rehab ? Patient/Guardian Yes verbally acknowledges understanding of treatment program and consents to further treatment? Patient/Guardian Yes verbally acknowledges understanding of diagnosis, prognosis and goals for treatment? Eval Complexity OT Charge 29447 - Moderate Complexity PHYSICIAN CERTIFICATION: I certify the specified therapy services for Juan Luis Awad are required, authorized, and reviewed every 30 days.
== END 2025-08-13 23:59 | disposition home or self-care (01) ==
LOC: OT 08:00
PROVIDERS: PCP Nurse Practitioner; Visit Provider Nurse Practitioner
DX: M25.511 Pain in right shoulder (principal)
CPT/HCPCS: 97014; 97032; 97110; 97140; 97166; 97530; G0283

== ENCOUNTER 2025-08-21 08:00 | Outpatient (RCR) | payer BC, SELFPAY | END 2025-08-21 23:59 | disposition home or self-care (01) | LOC: OT 08:00 | PROVIDERS: PCP Nurse Practitioner; Visit Provider Nurse Practitioner | DX: M25.511 Pain in right shoulder (principal) | CPT/HCPCS: 97014; 97032; 97110; 97140; G0283 ==